=== PATIENT | female | born 1935 | race Caucasian/White ===

== ENCOUNTER → 2017-05-20 | Outpatient (CLI) | payer OTHER | LOC: FIMAGING 14:05 | PROVIDERS: ATTEND Family Medicine Geriatric Medicine | DX: Z12.31 Encounter for screening mammogram for malignant neoplasm of breast (principal) | CPT/HCPCS: G0202 ==

== ENCOUNTER → 2018-09-13 | Outpatient (CLI) | payer OTHER | LOC: FIMAGING 10:03 | PROVIDERS: ATTEND Family Medicine Geriatric Medicine | DX: Z12.31 Encounter for screening mammogram for malignant neoplasm of breast (principal) ==

== ENCOUNTER 2019-03-02 17:25 | Observation (INO) | payer OTHER ==
--- NOTE | 2019-03-02 18:10 | EDPHY ---
General Time Seen by Provider: 03/02/19 17:32 Narrative: CLINICAL IMPRESSION: DIZZINESS ASSESSMENT/PLAN: 83-year-old female presents to the emergency department with complaints of intermittent dizziness over the last 10 days, more so today reported as "just not feeling herself and feeling off balance". Patient arrives with hypertension but otherwise stable vital signs. She has no associated headache, vision changes, neck pain, chest pain or shortness of breath. She has a nonfocal neurological exam, NIH score of 0 with no limb ataxia. 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 No evidence of urinary tract infection, microscopic hematuria noted. No anemia, leukocytosis, significant electrolyte imbalance or renal insufficiency. Chest x-ray without acute cardiopulmonary abnormality. Patient was stabilized in the ED, blood pressures remained elevated, last pressure that I am measured in the room was 175 systolic. Patient will be admitted to the hospitalist service on med surge for further observation and evaluation overnight. She is comfortable with this plan. DNR at bedside. DIFFERENTIAL DX: Dizziness including but not limited to peripheral and central causes of vertigo , orthostatic causes including dehydration, and blood loss, electrolyte imbalance. ED PROCEDURES: See lab and/or imaging results below ED COURSE: 6:00 p.m.: Case an EKG reviewed with Dr. Lerner. Plan for MRI brain without contrast, labs, EKG 6:45 p.m.: Received a call from MRI. Preliminary MRI without contrast showing a frontal lobe mass, marine fisheries technician discussed with Dr. Zamudio who has requested contrast. I authorize this to occur. 7:15 p.m.: MRI results discussed with Dr. Zamudio. Multiple small vessel ischemic changes, no acute hemorrhage or abnormality. Of note, patient has an extra axial mass, likely a calcified meningioma. Surrounding brain without abnormality. The MRI results and labs reviewed with the patient. Recommended admission and she has agreed to this. Discussed with DR. Zarate for admission. CHIEF COMPLAINT: Dizziness HPI: 83-year-old female who resides at [facility] presents to the emergency department by ambulance complaining of intermittent dizziness over the last 7- 10 days, worse today after attending a [place] [facility]. Patient reports she has "just not felt herself". States today she felt "off balance, more so than normal" and apparently had to lean against a wall. She reports no coinciding headache, vertigo, acute vision or hearing changes, or neck pain. No closed head injury or neck trauma. She initially thought this was due to dehydration and has been drinking of substantial amount of water. No reported UTI symptoms. No chest pain or shortness of breath. She has never had symptoms like this in the past. She has not seen anyone for it. She is taking medications compliantly. No reported recent illness, GI symptoms, diarrhea, rash. She does not check her blood pressure regularly and was noted to be quite hypertensive by EMS at 219/110, last blood pressure reading here was 194/ 108. Her friends report that she has not been acting altered and they report no slurred speech. Patient reports no numbness or weakness to the arms or legs and no facial tingling. No head past history of TIA or CVA. She is a nonsmoker PAST MEDICAL HISTORY: Hypercholesterolemia, hypertension, hypothyroidism See nurse/triage notes for additional history if applicable Pertinent Past Surgical History: Bilateral hip replacements, right wrist surgery Family History: None reported Social History: Nonsmoker, lives at [facility] REVIEW OF SYSTEMS: All other systems negative Constitutional: No fever, no chills, appetite change. Eyes: No discharge, vision change ENT: No sore throat, congestion, ear pain. Cardiovascular: No chest pain, no palpitations. Respiratory: No cough, no shortness of breath. Gastrointestinal: No abdominal pain, no vomiting, diarrhea. Genitourinary: No hematuria, dysuria, flank pain, pelvic pain Musculoskeletal: No back pain, or neck pain, joint swelling, joint pain, myalgias. Skin: No rashes, color change. Neurological: No headache, positive for dizziness, positive for weakness. PHYSICAL EXAM: General Appearance: Alert, oriented, appropriate, cooperative, NAD, well hydrated, non-toxic appearing, hypertensive, no hypoxia. HEENT: TMs are clear bilaterally no perforation or FB, no injection, no evidence of serous or mucopurulent otitis. Oropharynx clear is no erythema or exudates, no tonsillar hypertrophy or asymmetry. Dentition without abnormality. Eyes: [PERRLA, no acute vision change, nystagmus, swelling, discharge, pain or photosensitivity. No papilledema appreciated. Neck: Supple, nontender, no lymphadenopathy, no midline pain, FROM, no meningismus. No JVD Respiratory: There are no retractions, lungs are clear to auscultation. Cardiac: Regular rate and rhythm, no murmurs or gallops. Gastrointestinal: Abdomen is soft, nontender, bowel sounds normal,no focal peritoneal findings. Neurological: Alert and oriented x 3, CN 2-12 grossly intact, NIH score of 0 with no limb ataxia, DTR's intact, normal sensation and strength Skin: Warm, dry, no rashes, no nodules on palpation. Musculoskeletal: Extremities are symmetrical, full range of motion, chronic unchanged right knee tenderness and swelling due to arthritis MEDICAL DECISION MAKING: Patient was seen independently. Secondary supervising physician at time of evaluation was Dr. Lerner. Diagnosis: Dizziness . New, requires workup Summary: See Assessment and Plan for summary of ED visit Clinical lab tests: ordered / reviewed. Independent visualization of images, tracing, or specimens: Yes. Decision to obtain medical records or history from someone other than the patient: Family Review / Summarize previous medical records: Reviewed Discussed patient with another provider: Dr. Lerner, hospitalist Patient Progress: Stable for admission. - Diagnostics Imaging Results: Imaging Impressions Brain MRI 03/02/19 18:01 Impression: 1. Extensive periventricular and deep hemispheric white matter change suggesting underlying small vessel ischemic disease. No evidence for acute infarct. There is also probably a component of underlying cerebral amyloid angiopathy. 2. Generalized cerebral atrophy. 3. 3-cm extraaxial dural-based mass anteriorly in the right frontal fossa, probably representing a calcified meningioma. 4. Mild chronic sinus related change. Results called and discussed with Martín Burgos PA-C on March 02, 2019 at 1916 hours. Chest X-Ray 03/02/19 18:10 Impression: No evidence for acute cardiopulmonary abnormality. Chronic findings , as above. - History Smoking Status: Never smoked - Objective Vital Signs: Initial Vital Signs Temperature (C) 36.7 C 03/02/19 17:30 Heart Rate 82 03/02/19 17:30 Respiratory Rate 16 03/02/19 17:30 Blood Pressure 208/96 H 03/02/19 17:30 O2 Sat (%) 96 03/02/19 17:30 O2 Delivery Mode Room Air Allergies/Adverse Reactions: cephalexin Allergy (Intermediate, Verified 03/02/19 20:18) Rash Home Medications: Medication Instructions Recorded Atorvastatin Calcium [Lipitor 10 10 mg PO DAILY 03/02/19 mg (*)] Herbals/Supplements -Info Only 1 ea PO DAILY 03/02/19 Levothyroxine [Synthroid 75 mcg 75 mcg PO SUTUTHSA@06 03/02/19 (*)] Levothyroxine [Synthroid 88 mcg 88 mcg PO MOWEFR 03/02/19 (*)] Laboratory Results: Laboratory Results 03/02/19 17:50 03/02/19 17:50 03/02/19 03/02/19 03/02/19 17:55 17:50 17:50 WBC 7.21 10^3/uL 10^3/uL (3.80-9.50) RBC 4.21 10^6/uL 10^6/uL (4.18-5.33) Hgb 13.5 g/dL g/dL (12.6-16.3) Hct 38.5 % % (38.0-47.0) MCV 91.4 fL fL (81.5-99.8) MCH 32.1 pg pg (27.9-34.1) MCHC 35.1 g/dL g/dL (32.4-36.7) RDW 12.7 % % (11.5-15.2) Plt Count 274 10^3/uL 10^3/uL (150-400) MPV 9.4 fL fL (8.7-11.7) Neut % (Auto) 66.4 % % (39.3-74.2) Lymph % (Auto) 21.2 % % (15.0-45.0) [place] % (Auto) 9.4 % % (4.5-13.0) Eos % (Auto) 1.9 % % (0.6-7.6) Baso % (Auto) 0.8 % % (0.3-1.7) Nucleat RBC Rel Count 0.0 % % (0.0-0.2) Absolute Neuts (auto) 4.78 10^3/uL 10^3/uL (1.70-6.50) Absolute Lymphs (auto) 1.53 10^3/uL 10^3/uL (1.00-3.00) Absolute Monos (auto) 0.68 10^3/uL 10^3/uL (0.30-0.80) Absolute Eos (auto) 0.14 10^3/uL 10^3/uL (0.03-0.40) Absolute Basos (auto) 0.06 10^3/uL 10^3/uL (0.02-0.10) Absolute Nucleated RBC 0.00 10^3/uL 10^3/uL (0-0.01) Immature Gran % 0.3 % % (0.0-1.1) Immature Gran # 0.02 10^3/uL 10^3/uL (0.00-0.10) Sodium 131 mEq/L L mEq/L (135-145) Potassium 4.2 mEq/L mEq/L (3.5-5.2) Chloride 99 mEq/L mEq/L (97-110) Carbon Dioxide 21 mEq/l L mEq/l (22-31) Anion Gap 11 mEq/L mEq/L (6-14) BUN 19 mg/dL mg/dL (7-23) Creatinine 0.9 mg/dL mg/dL (0.6-1.0) Estimated GFR 60 Glucose 96 mg/dL mg/dL (70-100) Calcium 9.3 mg/dL mg/dL (8.5-10.4) POC Troponin I 0.00 ng/mL ng/mL (0.00-0.08) Urine Color Urine Appearance Urine pH Ur Specific [place] Urine Protein Urine Ketones Urine Blood Urine Nitrate Urine Bilirubin Urine Urobilinogen Ur Leukocyte Esterase Urine RBC Urine WBC Ur Epithelial Cells Ur Renal Epithelial Cell Urine Crystals Ammonium Urate Crystals Calcium Carbonate Cryst Calcium Phosphate Cryst Calcium Oxalate Crystal Leucine Crystals Cystine Crystals Uric Acid Crystals Triple Phos Crystals Sulfonamide Crystals Cholesterol Crystals Tyrosine Crystals Bilirubin Crystals Amorphous Sediment Urine Bacteria Epithelial Casts Fatty Casts Hyaline Casts Granular Casts Waxy Casts Broad Casts RBC Casts WBC Casts Urine Mucus Urine Trichomonas Urine Yeast Urine Sperm Ur Oval Fat Bodies Ur Free Fat Droplets Urine Glucose Urine Comment 03/02/19 03/02/19 17:42 17:42 WBC RBC Hgb Hct MCV MCH MCHC RDW Plt Count MPV Neut % (Auto) Lymph % (Auto) [place] % (Auto) Eos % (Auto) Baso % (Auto) Nucleat RBC Rel Count Absolute Neuts (auto) Absolute Lymphs (auto) Absolute Monos (auto) Absolute Eos (auto) Absolute Basos (auto) Absolute Nucleated RBC Immature Gran % Immature Gran # Sodium Potassium Chloride Carbon Dioxide Anion Gap BUN Creatinine Estimated GFR Glucose Calcium POC Troponin I Urine Color COLORLESS Urine Appearance CLEAR Urine pH 7.0 (5.0-7.5) Ur Specific [place] 1.003 (1.002-1.030) Urine Protein NEGATIVE (NEGATIVE) Urine Ketones NEGATIVE (NEGATIVE) Urine Blood 1+ H (NEGATIVE) Urine Nitrate NEGATIVE (NEGATIVE) Urine Bilirubin NEGATIVE (NEGATIVE) Urine Urobilinogen NEGATIVE EU EU (0.2-1.0) Ur Leukocyte Esterase NEGATIVE (NEGATIVE) Urine RBC Cancelled 1-3 /hpf /hpf (0-3) Urine WBC Cancelled 1-3 /hpf /hpf (0-3) Ur Epithelial Cells Cancelled NONE SEEN /lpf /lpf (NONE-1+) Ur Renal Epithelial Cell Cancelled Urine Crystals Cancelled Ammonium Urate Crystals Cancelled Calcium Carbonate Cryst Cancelled Calcium Phosphate Cryst Cancelled Calcium Oxalate Crystal Cancelled Leucine Crystals Cancelled Cystine Crystals Cancelled Uric Acid Crystals Cancelled Triple Phos Crystals Cancelled Sulfonamide Crystals Cancelled Cholesterol Crystals Cancelled Tyrosine Crystals Cancelled Bilirubin Crystals Cancelled Amorphous Sediment Cancelled Urine Bacteria Cancelled Epithelial Casts Cancelled Fatty Casts Cancelled Hyaline Casts Cancelled Granular Casts Cancelled Waxy Casts Cancelled Broad Casts Cancelled RBC Casts Cancelled WBC Casts Cancelled Urine Mucus Cancelled Urine Trichomonas Cancelled Urine Yeast Cancelled Urine Sperm Cancelled Ur Oval Fat Bodies Cancelled Ur Free Fat Droplets Cancelled Urine Glucose NEGATIVE (NEGATIVE) Urine Comment Cancelled Point of Care Test Results: Chemistry 03/02/19 17:55 POC Troponin I 0.00 ng/mL ng/mL (0.00-0.08) Departure - Departure Disposition: [facility] Inpatient Acute Clinical Impression: Dizziness Condition: Good
[2019-03-02 18:18] LABS: PLATELET COUNT 274 10^3/uL (150-400)
--- NOTE | 2019-03-02 18:22 | CPEKG ---
Test Reason : OPEN Blood Pressure : / mmHG Vent. Rate : 075 BPM Atrial Rate : 075 BPM P-R Int : 205 ms QRS Dur : 101 ms QT Int : 392 ms P-R-T Axes : 016 -12 067 degrees QTc Int : 438 ms Sinus rhythm Probable anteroseptal infarct, old Confirmed by Fady Lerner ([id number]) on 03/02/2019 6:22:29 PM Referred By: Cherie Welch Confirmed By:Fady Lerner
[2019-03-02] MEDS ORDERED: GADOBUTROL 10 ML VIAL IVP ONE (18:43)
[2019-03-02] MEDS ORDERED: HYDROCODONE/APAP 5/325 TAB PO PRN (20:42)
[2019-03-02] MEDS ORDERED: ACETAMINOPHEN 325 MG TAB PO PRN (20:42)
[2019-03-02] MEDS ORDERED: ONDANSETRON DISINTEGRATING 4 MG TAB PO PRN (20:42)
[2019-03-02] MEDS ORDERED: oxyCODONE IR 5 MG TAB PO PRN (20:42)
[2019-03-02] MEDS ORDERED: PROMETHAZINE HCL 25 MG/ML INJ IVP PRN (20:42)
[2019-03-02] MEDS ORDERED: ONDANSETRON 4 MG/2 ML VIAL IVP PRN (20:42)
[2019-03-02] MEDS ORDERED: hydrALAZINE 20 MG/ML VIAL IVP PRN (20:42)
--- NOTE | 2019-03-02 20:45 | PDGENHP ---
History and Physical - Chief Complaint dizziness/gait instability - History of Present Illness 83 yo F with PMH that includes hypothyroid and HLD presenting with complaints of dizziness for the last 10-14 days that has been worsening, and severe enough today that she was not able to walk without holding on to the wall. She has a hard time describing the dizziness, states it was not near syncope, not vertigo , but just that she 'did not feel her usual self.' She thought she might be dehydrated so she drank a lot of water today, but that did not help. She denies any chest pain, sob, fever or chills, numbness or weakness, changes in speech or vision. She states that her sxs have improved somewhat since arrival. When she arrived, her BP was elevated to SBP>200, and her sxs improved as it came down History Information - Allergies/Home Medication List Allergies/Adverse Reactions: cephalexin Allergy (Intermediate, Verified 03/02/19 20:18) Rash Home Medications: Atorvastatin Calcium [Lipitor 10 mg (*)] 10 mg PO DAILY 03/02/19 [Last Taken ] Herbals/Supplements -Info Only 1 ea PO DAILY 03/02/19 [Last Taken 03/02/19] Levothyroxine [Synthroid 75 mcg (*)] 75 mcg PO SUTUTHSA@06 03/02/19 [Last Taken 03/02/19] Levothyroxine [Synthroid 88 mcg (*)] 88 mcg PO MOWEFR 03/02/19 [Last Taken 03/01] I have personally reviewed and updated: family history, medical history, social history, surgical history - Past Medical History arthritis, hyperlipidemia Additional medical history: hypothyroid - Surgical History Additional surgical history: left TERESA - Family History Positive for: non-pertinent - Social History Smoking Status: Never smoked Alcohol Use: Rarely Drug Use: None Additional social history: lives independently at [facility] Review of Systems Review of Systems: ROS: 10pt was reviewed & negative except for what was stated in HPI & below Physical Exam Physical Exam: Temp Pulse Resp BP Pulse Ox 36.7 C 73 16 174/91 H 97 03/02/19 17:30 03/02/19 20:08 03/02/19 20:08 03/02/19 20:08 03/02/19 20:08 Constitutional: no apparent distress, appears nourished Eyes: PERRL, EOMI Ears, Nose, Mouth, Throat: moist mucous membranes, hearing normal Cardiovascular: regular rate and rhythym, no murmur, rub, or gallop, No edema Respiratory: no respiratory distress, no rales or rhonchi Gastrointestinal: normoactive bowel sounds, soft, non-tender abdomen Genitourinary: no bladder tenderness Skin: warm, normal color Musculoskeletal: full muscle strength Neurologic: AAOx3 Psychiatric: interacting appropriately, not anxious, not encephalopathic Lab Data & Imaging Review 03/02/19 17:50 03/02/19 17:50 WBC 7.21 10^3/uL (3.80-9.50) 03/02/19 17:50 RBC 4.21 10^6/uL (4.18-5.33) 03/02/19 17:50 Hgb 13.5 g/dL (12.6-16.3) 03/02/19 17:50 Hct 38.5 % (38.0-47.0) 03/02/19 17:50 MCV 91.4 fL (81.5-99.8) 03/02/19 17:50 MCH 32.1 pg (27.9-34.1) 03/02/19 17:50 MCHC 35.1 g/dL (32.4-36.7) 03/02/19 17:50 RDW 12.7 % (11.5-15.2) 03/02/19 17:50 Plt Count 274 10^3/uL (150-400) 03/02/19 17:50 MPV 9.4 fL (8.7-11.7) 03/02/19 17:50 Neut % (Auto) 66.4 % (39.3-74.2) 03/02/19 17:50 Lymph % (Auto) 21.2 % (15.0-45.0) 03/02/19 17:50 [place] % (Auto) 9.4 % (4.5-13.0) 03/02/19 17:50 Eos % (Auto) 1.9 % (0.6-7.6) 03/02/19 17:50 Baso % (Auto) 0.8 % (0.3-1.7) 03/02/19 17:50 Nucleat RBC Rel Count 0.0 % (0.0-0.2) 03/02/19 17:50 Absolute Neuts (auto) 4.78 10^3/uL (1.70-6.50) 03/02/19 17:50 Absolute Lymphs (auto) 1.53 10^3/uL (1.00-3.00) 03/02/19 17:50 Absolute Monos (auto) 0.68 10^3/uL (0.30-0.80) 03/02/19 17:50 Absolute Eos (auto) 0.14 10^3/uL (0.03-0.40) 03/02/19 17:50 Absolute Basos (auto) 0.06 10^3/uL (0.02-0.10) 03/02/19 17:50 Absolute Nucleated RBC 0.00 10^3/uL (0-0.01) 03/02/19 17:50 Immature Gran % 0.3 % (0.0-1.1) 03/02/19 17:50 Immature Gran # 0.02 10^3/uL (0.00-0.10) 03/02/19 17:50 Sodium 131 mEq/L (135-145) L 03/02/19 17:50 Potassium 4.2 mEq/L (3.5-5.2) 03/02/19 17:50 Chloride 99 mEq/L (97-110) 03/02/19 17:50 Carbon Dioxide 21 mEq/l (22-31) L 03/02/19 17:50 Anion Gap 11 mEq/L (6-14) 03/02/19 17:50 BUN 19 mg/dL (7-23) 03/02/19 17:50 Creatinine 0.9 mg/dL (0.6-1.0) 03/02/19 17:50 Estimated GFR 60 03/02/19 17:50 Glucose 96 mg/dL (70-100) 03/02/19 17:50 Calcium 9.3 mg/dL (8.5-10.4) 03/02/19 17:50 POC Troponin I 0.00 ng/mL (0.00-0.08) 03/02/19 17:55 Urine Color COLORLESS 03/02/19 17:42 Urine Appearance CLEAR 03/02/19 17:42 Urine pH 7.0 (5.0-7.5) 03/02/19 17:42 Ur Specific [place] 1.003 (1.002-1.030) 03/02/19 17:42 Urine Protein NEGATIVE (NEGATIVE) 03/02/19 17:42 Urine Ketones NEGATIVE (NEGATIVE) 03/02/19 17:42 Urine Blood 1+ (NEGATIVE) H 03/02/19 17:42 Urine Nitrate NEGATIVE (NEGATIVE) 03/02/19 17:42 Urine Bilirubin NEGATIVE (NEGATIVE) 03/02/19 17:42 Urine Urobilinogen NEGATIVE EU (0.2-1.0) 03/02/19 17:42 Ur Leukocyte Esterase NEGATIVE (NEGATIVE) 03/02/19 17:42 Urine RBC 1-3 /hpf (0-3) 03/02/19 17:42 Urine WBC 1-3 /hpf (0-3) 03/02/19 17:42 Ur Epithelial Cells NONE SEEN /lpf (NONE-1+) 03/02/19 17:42 Ur Renal Epithelial Cell Cancelled 03/02/19 17:42 Urine Crystals Cancelled 03/02/19 17:42 Ammonium Urate Crystals Cancelled 03/02/19 17:42 Calcium Carbonate Cryst Cancelled 03/02/19 17:42 Calcium Phosphate Cryst Cancelled 03/02/19 17:42 Calcium Oxalate Crystal Cancelled 03/02/19 17:42 Leucine Crystals Cancelled 03/02/19 17:42 Cystine Crystals Cancelled 03/02/19 17:42 Uric Acid Crystals Cancelled 03/02/19 17:42 Triple Phos Crystals Cancelled 03/02/19 17:42 Sulfonamide Crystals Cancelled 03/02/19 17:42 Cholesterol Crystals Cancelled 03/02/19 17:42 Tyrosine Crystals Cancelled 03/02/19 17:42 Bilirubin Crystals Cancelled 03/02/19 17:42 Amorphous Sediment Cancelled 03/02/19 17:42 Urine Bacteria Cancelled 03/02/19 17:42 Epithelial Casts Cancelled 03/02/19 17:42 Fatty Casts Cancelled 03/02/19 17:42 Hyaline Casts Cancelled 03/02/19 17:42 Granular Casts Cancelled 03/02/19 17:42 Waxy Casts Cancelled 03/02/19 17:42 Broad Casts Cancelled 03/02/19 17:42 RBC Casts Cancelled 03/02/19 17:42 WBC Casts Cancelled 03/02/19 17:42 Urine Mucus Cancelled 03/02/19 17:42 Urine Trichomonas Cancelled 03/02/19 17:42 Urine Yeast Cancelled 03/02/19 17:42 Urine Sperm Cancelled 03/02/19 17:42 Ur Oval Fat Bodies Cancelled 03/02/19 17:42 Ur Free Fat Droplets Cancelled 03/02/19 17:42 Urine Glucose NEGATIVE (NEGATIVE) 03/02/19 17:42 Urine Comment Cancelled 03/02/19 17:42 Visualized and Interpreted Chest x-ray results: Yes Chest X-Ray results: no infiltrate, other (e/o emphysema) Visualized and Interpreted imaging results: Yes Interpretation: brain MRI: exentsive white matter changes, ? cerebral amyloid angiopathy, 3cm dural based mass likely calcified meningioma Visualized and Interpreted EKG results: Yes EKG Interpretation: Positive for: normal sinsus rhythm Assessment & Plan Assessment: Dizziness (Acute) 83 yo F with PMH of HLD, hypothyroid pw 10 days of dizziness, with hypertensive urgency and abnormal brain mri # dizziness: patient a poor historian and difficult to really be sure what she is describing, but today also with gait instability, no focal neuro findings. Plan is to monitor on tele, will get an echo in am given uncontrolled htn and uncertain sxs. PT/OT to see. Given abnormal brain MRI, neuro consult as well. # hypertensive urgency: with associated sxs as above possibly related to hypertensive encephalopathy or similar issue but unclear given the history, she did note her sxs improved with bp lowering. Hydralazine prn, will aim to keep bp around sbp 160-180 if possible. She is not on BP meds at home and likely will need to dc on bp meds. # brain mass/extensive white matter disease: abnormal brain MRI in setting of days of dizziness and not feeling right as above, non focal on exam, will ask for neurology to evaluate in am # hyponatremia: mild, likely due to drinking excessive water today, will recheck in am # hypothyroid: continue levothyroxine # HLD: continue statin # DNR observation status Patient new to my care. Old records reviewed, care plan reviewed with ER doctor , summarized as above. Further hx obtained from family present at bedside.
[2019-03-03 05:18] LABS: PLATELET COUNT 252 10^3/uL (150-400)
[2019-03-03] MEDS ORDERED: LEVOTHYROXINE 75 MCG TAB PO SCH (06:00)
[2019-03-03] MEDS ORDERED: ATORVASTATIN CALCIUM 10 MG TAB PO SCH (09:00)
[2019-03-03 12:21] VITALS: BP 135/79
--- NOTE | 2019-03-03 12:49 | ASMTLACE ---
LACE Length of stay for Answers: Less than 1 day current admission Acuity / Level of Answers: No Care: Did the patient have an inpatient admission? # of Emergency department Answers: 1-2 visits in the last 6 months Score: 1 Date Signed: 03/03/2019 12:49 PM Electronically Signed By:Lisette Herrera RN
--- NOTE | 2019-03-03 12:52 | ASMTDCNOTE ---
Case Management Discharge Discharge Order Complete? Answers: Yes Patient to Obtain Answers: via Family Medications Transportation Arranged Answers: Family/Friends Family Notified Answers: Yes Discharge Comments Notes: Patient medically clear for dc back to [facility] after been admitted as obs patient via ED for c/o dizzyness. Stay < 24 hours. CM available should needs arise Date Signed: 03/03/2019 12:52 PM Electronically Signed By:Lisette Herrera RN
--- NOTE | 2019-03-03 15:23 | GCON ---
[f rep st] CONSULTATION NEUROLOGIC CONSULTATION REFERRING PHYSICIAN: Dilip Navarro MD HISTORY OF PRESENT ILLNESS: The patient is an 83-year-old woman who has been experiencing a few week s of feeling lightheaded. It is not vertigo and it is not associated with syncope, but she says that it is a feeling hard for her to put into words. The best word she can come up with is a lightheaded feeling. It tends to happen after she gets up and is moving about. It is not associated with any h eadaches, confusion, double vision, numbness or weakness. Yesterday, she had the same phenomenon but seemed a little more prominent than usual and she felt as if she needed to lean against things. She does not need walking assistance in her apartment, but she will use a rolling walker at times when s he is outside of her residence. She is otherwise fully independent. She had a rather high blood pre ssure when it was checked at her nursing facility, over 200. Then when she came to our hospital, her initial reading was 208/96. Subsequently, it has come down without specific interventions and most recent blood pressure is 127/78. She is not known to have any chronic hypertension. She feels much better now. 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 Carotid ultrasound showed no significant stenoses of the anterior or posterior circulation by velocity criteria. Echocardiogram is pending. At home, she takes Lipitor. She is n ot on any antiplatelet therapies. She has had no recurrent feelings of prominent lightheadedness. She said when she was walking today she felt good. She says she is consciously trying to maintain hydration as best she can. There was just a mild degr ee of relative hyponatremia yesterday. REVIEW OF SYSTEMS: A 10-point review of systems completed and unremarkable for chest pain, palpitati ons, shortness of breath, or any other neurologic complaints as outlined above. PAST MEDICAL HISTORY: There is some history of arthritis, hyperlipidemia, and hypothyroidism. FAMILY HISTORY: Noncontributory. SOCIAL HISTORY: She is retired from [employer] and from [place]. No smoking. Very rare alcohol consum ption. PHYSICAL EXAMINATION: VITAL SIGNS: Temperature 36.6, pulse 57, respirations 16, blood pressure 127/ 78. GENERAL: She is a well-developed older woman in no acute distress. NECK: Supple with no bruit s or masses. CARDIAC: Regular rate and rhythm. No murmur. NEUROLOGICAL: Pupils 2 mm and reactive . Extraocular movements are intact. No visual field loss. Normal facial sensation and strength. P alate elevates symmetrically. Tongue protrudes midline. Motor exam: Normal muscle bulk and tone. 5/5 strength. Sensation is preserved for temperature and light touch. No ataxia on [id number]. Reflexes 1+. NIH stroke scale is zero. X-RAY AND LABORATORY DATA: Normal electrolytes. Urinalysis and CBC. Other diagnostic studies as ou tlined. IMPRESSION: Total unit time 50 minutes. This patient has experienced a few weeks of nonspecific lightheadedness, which is probably, some perh aps relative hypotensive phenomena but not consistent with transient ischemic attack or stroke or sei zure. It does not sound particularly vestibular in nature. We do not see any changes thus far sugge sting a cerebrovascular stenosis to account for this. Unless echocardiogram shows something unexpect ed, she is safe to be discharged to my opinion and can follow up with primary care. Doing some outpa tient physical therapy is a reasonable option, but also emphasizing the importance of hydration and e xercise. She already has mobility assistance devices in place, and is a very conscientious person aw are of her limitations and moves around carefully. She does not have a clear-cut indication for marcelino ng antiplatelet therapy. She is already on statin therapy. I discussed the status with nurse ana Miranda. /[id number]/MODL
--- NOTE | 2019-03-03 17:03 | GDS ---
[f rep st] DISCHARGE SUMMARY DISCHARGE DIAGNOSES: 1. Dizziness. 2. Hypertensive urgency. 3. Abnormal brain magnetic resonance imaging. 4. Hyponatremia. 5. Hypothyroidism. CONSULTATIONS: Dr. Alfonso. STUDIES AND PROCEDURES DONE: 1. Brain MRI. 2. Carotid Doppler study. 3. Echocardiogram. PHYSICAL EXAM: GENERAL: The patient is alert. VITAL SIGNS: Afebrile at 36.7, pulse of 76, respira tory rate is 19. Blood pressure is 135/79. She is saturating 95% on room air. I have seen and eval uated the patient on the day of discharge. HOSPITAL COURSE: The patient is an 83-year-old female who presented to the emergency room with compl aints of dizziness. She was evaluated and diagnosed with: 1. Dizziness. The etiology of this is unclear. She has no focal neuro deficits. She did receive a consultation from Neurology. Her symptoms have completely resolved and she feels close to baseline. 2. Hypertensive urgency. This is likely the cause of the patient's dizziness. She did receive hydr alazine during this hospitalization. Her blood pressure has remained within normal limits off any an tihypertensive medications. She has been instructed to keep a blood pressure journal at home and fol low up with her primary care physician. She does not require any antihypertensive medications at the time of disposition. 3. Abnormal MRI. This was evaluated by Neurology with no further indication for workup. 4. Hyponatremia. This is in the setting of potential excessive water intake and is stable. 5. Hypothyroidism. This is stable. DISPOSITION: The patient will be discharged home to return to [facility]. T here are no pending laboratory evaluations. Pending studies do include echocardiogram which the [facility] will get results from her primary care physician. DISCHARGE MEDICATIONS: Please refer to EMR form. I have not adjusted the patient's previously presc ribed home medications to the best of my knowledge. Followup will be with Dr. Leah Norris, the [facility]'s primary care physician. She has been cleared by Physical Therapy and Occupational Therapy. /[id number]/MODL
[2019-03-04] MEDS ORDERED: LEVOTHYROXINE 88 MCG TAB PO SCH (06:00)
--- NOTE | 2019-03-04 10:40 | ECHO ---
[email or web address] [address] [address] Main: [phone] Echocardiography Examination Transthoracic Name: DAVID ANAYA MR#: [id number] Study Date: 03/03/2019 Study Time: 02:09 PM Date of : 1935 Age: 83 year(s) Height: 165.1 cm (65 in.) Weight: 70.31 kg (155 lb.) BSA: 1.78 m2 Gender: Female Examination: Echo Contrast: Image Quality: Adequate Rhythm: Normal sinus rhythm Heart Rate: 77 bpm BP: 135 mmHg/79 mmHg Indication: Cardiac: dizziness and/or near-syncope Procedure Staff Referring Physician: Supervisor Transcribing Operators: Reading Physician: Cesario Macias MD Requesting Provider: Ordering Physician: Dilip Navarro Indication: Cardiac: dizziness and/or near-syncope Measurements Chambers AV/MV Label Value Normal Value Label Value Normal Value LVOT Vmax 0.91 m/s (0.7m/s - 1.1m/s) AV PGmax 7 mmHg LVOTd 1.9 cm (1.8cm - 2cm) AV PGmean 4 mmHg LVOT VTI 22.5 cm (18cm - 22cm) AV Vmax 1.3 m/s LVDd, 2D 4.6 cm (3.9cm - 5.3cm) ANTHONY (Vmax) 2 cm2 LVDs, 2D 3.1 cm (2.1cm - 4cm) ANTHONY (VTI) 2.2 cm2 IVSd, MM 1.4 cm (0.6cm - 0.9cm) MV E Vmax 0.55 m/s IVSd, 2D 1 cm (0.6cm - 1.1cm) MV A Vmax 0.62 m/s LVPWd, 2D 1.3 cm MV E/A 0.89 LVEF, 2D 60 % (54% - 74%) MV E/E' lateral 9.7 LVOT PGmean 2 mmHg MV E/E' septal 17 (0.45 - 1.25) LVOT Vmean 0.66 m/s MV E' septal 0.03 m/s RVDd, 2D 3 cm (1.9cm - 3.8cm) MV E' lateral 0.06 m/s LA Volume, BP 46 ml (22ml - 52ml) MV E/E' mean 12.22 LADs, 2D 3.7 cm (2.7cm - 3.8cm) MV E' mean 0.04 m/s LAESV index, BP 25.8 ml/m2 TV/PV Additional Vessels Label Value Normal Value Label Value Normal Value RA Pressure 5 mmHg AoAsc 3 cm RVSP 27 mmHg AoRoot, MM 3.4 cm (2.2cm - 3.7cm) TR Pmax 22 mmHg Patient: DAVID ANAYA Study Date: 03/03/2019 Page 1 of 3 02:09 PM TR Vmax 2.33 m/s PV PGmax 2 mmHg PV Vmax, Caliper 0.72 m/s (0.6m/s - 0.9m/s) Conclusions Left Ventricle: CONCLUSIONS:1)Normal LV size and systolic function with a LVEF of 60% and normal wall motions.2)Mild concentric LVH with mild diastolic dysfunction noted.3)Mild AI with no noted.4)Trivial MR without MV prolapse.5)Trivial TR with estimated normal PA pressures. Findings Left Ventricle: Left ventricle is normal in size. CONCLUSIONS: 1)Normal LV size and systolic function with a LVEF of 60% and normal wall motions. 2)Mild concentric LVH with mild diastolic dysfunction noted. 3)Mild AI with no noted. 4)Trivial MR without MV prolapse. 5)Trivial TR with estimated normal PA pressures. There is mild concentric left ventricular hypertrophy. There are no regional wall motion abnormalities. Grade I Diastolic Dysfunction. Left ventricular hypertrophy is noted. Right Ventricle: Normal size right ventricle. Right ventricular systolic function is normal. Left Atrium: The left atrium is normal in size. Right Atrium: The right atrium is normal in size. Mitral Valve: Mitral valve appears structurally normal. Trivial mitral regurgitation. No mitral valve stenosis. There is minimal mitral thickening. Aortic Valve: Mild aortic regurgitation is present. There is no aortic stenosis. The aortic valve is trileaflet. Tricuspid Valve: Tricuspid valve leaflets are normal in appearance and function. Trivial tricuspid regurgitation. Right Ventricular systolic pressure is measured at 27 mmHg. Pulmonary artery pressure normal. Pulmonic Valve: Pulmonic leaflets are normal in appearance and function. Trivial pulmonic valve regurgitation is present. Aorta: The aorta is normal. The aortic root size in M-mode measures 3.4 cm. The ascending aorta measures 3.0 cm. Aorta Measurements AoRoot, MM is 3.4 cm. Pericardium: No pericardial effusion. Exam Details Procedure Ordered: Echo Procedure Status: Routine study Image Quality: Adequate Facility Location: Cardiac Echo 1 (No Signature Object) Patient: DAVID ANAYA Study Date: 03/03/2019 Page 2 of 3 02:09 PM Patient: DAVID ANAYA Study Date: 03/03/2019 Page 3 of 3 02:09 PM [id number]
== END 2019-03-03 14:46 | disposition home or self-care (01) ==
LOC: EDUNIT# → F3N 21:20
PROVIDERS: ADMIT Internal Medicine; ATTEND Internal Medicine
DX: R55 Syncope and collapse (principal); I16.0 Hypertensive urgency; R90.89 Other abnormal findings on diagnostic imaging of central nervous system; E03.9 Hypothyroidism, unspecified; E87.1 Hypo-osmolality and hyponatremia; E78.00 Pure hypercholesterolemia, unspecified; Z96.643 Presence of artificial hip joint, bilateral
CPT/HCPCS: 70553; 71046; 93005; 93306; 93880; 97161; 97165; 99285; A9585; G0378; 84484-ER

== ENCOUNTER 2019-03-04 12:26 | Observation (INO) | payer OTHER ==
--- NOTE | 2019-03-04 13:23 | EDPHY ---
H & P Time Seen by Provider: 03/04/19 12:56 HPI/ROS: CHIEF COMPLAINT: Dizziness HISTORY OF PRESENT ILLNESS: Patient is an 80-year-old female who presents emergency department ongoing dizziness. The patient was admitted to the hospital on 03/02/2019 and discharged yesterday on 03/03. The patient has been having 10-14 days of dizziness. This primarily occurs in the morning. She was admitted to the hospital and had negative workup with brain MRI, carotid Doppler study and echocardiogram. Per the discharge summary the patient may have had hypertensive urgency causing her symptoms. She received hydralazine while in the hospital. Patient states that her symptoms returned this morning. She felt significantly dizzy. She was unable to ambulate and thought that she might fall. She had no focal weakness or numbness. No visual change. She denies headache, chest pain or shortness of breath. No nausea or vomiting. REVIEW OF SYSTEMS: 10 systems were reveiwed and are negative with the exception of the elements mentioned in the history of present illness. Past Medical/Surgical History: Includes hypertensive, hypothyroidism, high cholesterol, hyponatremia Past surgical history: Includes hip replacement Social history: Patient does not smoke Smoking Status: Never smoked Physical Exam: Vitals noted. Blood pressure 179/120. GENERAL: Well-appearing, in no acute distress, alert. HEENT: Eyes normal to inspection, normal pharynx, no signs of dehydration. NECK: Normal, supple. RESPIRATORY: Clear to auscultation bilaterally, no rales, rhonchi or wheezing. CVS: Regular rate and rhythm, no rubs, murmurs, or gallops. ABDOMEN: Soft, nontender, nondistended, no organomegaly. BACK: Normal to inspection, no CVA tenderness. SKIN: Normal color, no rash, warm, dry. No pallor. EXTREMITIES: No pedal edema, no calf tenderness, no Homans sign or cords, no joint swelling. NEURO/PSYCH: Higher functions: Alert and Oriented x3. Normal speech and cognition. Normal mood and affect. Cranial nerves: Normal as tested. Cerebellar: Normal as tested. Good finger to nose, good [id number], normal gait. Peripheral exam: Normal motor exam. Normal sensation. Normal reflexes. Constitutional: Initial Vital Signs Temperature (C) 36.8 C 03/04/19 12:30 Heart Rate 79 03/04/19 12:30 Respiratory Rate 18 03/04/19 12:30 Blood Pressure 179/120 H 03/04/19 12:30 O2 Sat (%) 98 03/04/19 12:30 O2 Delivery Mode Room Air Allergies/Adverse Reactions: cephalexin Allergy (Intermediate, Verified 03/04/19 12:30) Rash Home Medications: Medication Instructions Recorded Atorvastatin Calcium [Lipitor 10 10 mg PO DAILY@15 03/02/19 mg (*)] Herbals/Supplements -Info Only 1 ea PO DAILY 03/02/19 Levothyroxine [Synthroid 75 mcg 75 mcg PO SUTUTHSA@03/02/19 (*)] Levothyroxine [Synthroid 88 mcg 88 mcg PO MOWEFR@03/02/19 (*)] Medical Decision Making ED Course/Re-evaluation: In the emergency department discussed possible etiologies with the patient. I answered all her questions. I reviewed the patient's previous medical record. Laboratory studies and EKG were ordered. EKG shows normal sinus rhythm, normal rate, normal axis, normal intervals. There are no ST or T-wave abnormalities. EKG is normal as interpreted by me. CBC is unremarkable. Chemistry panel is notable for low sodium 132. I compared this with a previous values. Troponin is negative. Patient was written for hydralazine. However on recheck the patient's blood pressure improved to 165/85. Hydralazine was held. I discussed the results with the patient. I answered all her questions. I discussed the case with Dr. Navarro from the hospitalist service. She will admit. Differential Diagnosis: My differential includes not limited to hypertensive emergency, hypertensive urgency, CVA, dissection, electrolyte abnormality, sugar abnormality - Data Points Laboratory Results: Laboratory Results 03/04/19 12:55 03/04/19 12:55 03/04/19 03/04/19 03/04/19 12:59 12:55 12:55 WBC 6.44 10^3/uL 10^3/uL (3.80-9.50) RBC 4.27 10^6/uL 10^6/uL (4.18-5.33) Hgb 13.7 g/dL g/dL (12.6-16.3) Hct 39.0 % % (38.0-47.0) MCV 91.3 fL fL (81.5-99.8) MCH 32.1 pg pg (27.9-34.1) MCHC 35.1 g/dL g/dL (32.4-36.7) RDW 12.6 % % (11.5-15.2) Plt Count 266 10^3/uL 10^3/uL (150-400) MPV 9.4 fL fL (8.7-11.7) Neut % (Auto) 69.4 % % (39.3-74.2) Lymph % (Auto) 20.0 % % (15.0-45.0) [place] % (Auto) 8.4 % % (4.5-13.0) Eos % (Auto) 1.1 % % (0.6-7.6) Baso % (Auto) 0.8 % % (0.3-1.7) Nucleat RBC Rel Count 0.0 % % (0.0-0.2) Absolute Neuts (auto) 4.47 10^3/uL 10^3/uL (1.70-6.50) Absolute Lymphs (auto) 1.29 10^3/uL 10^3/uL (1.00-3.00) Absolute Monos (auto) 0.54 10^3/uL 10^3/uL (0.30-0.80) Absolute Eos (auto) 0.07 10^3/uL 10^3/uL (0.03-0.40) Absolute Basos (auto) 0.05 10^3/uL 10^3/uL (0.02-0.10) Absolute Nucleated RBC 0.00 10^3/uL 10^3/uL (0-0.01) Immature Gran % 0.3 % % (0.0-1.1) Immature Gran # 0.02 10^3/uL 10^3/uL (0.00-0.10) Sodium 132 mEq/L L mEq/L (135-145) Potassium 4.1 mEq/L mEq/L (3.5-5.2) Chloride 98 mEq/L mEq/L (97-110) Carbon Dioxide 21 mEq/l L mEq/l (22-31) Anion Gap 13 mEq/L mEq/L (6-14) BUN 19 mg/dL mg/dL (7-23) Creatinine 0.9 mg/dL mg/dL (0.6-1.0) Estimated GFR 60 Glucose 90 mg/dL mg/dL (70-100) Calcium 9.2 mg/dL mg/dL (8.5-10.4) POC Troponin I 0.00 ng/mL ng/mL (0.00-0.08) Medications Given: Discontinued Medications Hydralazine HCl (Apresoline) 5 mg IVP EDNOW ONE Stop: 03/04/19 13:29 Last Admin: 03/04/19 14:12 Dose: Not Given Point of Care Test Results: Chemistry 03/04/19 12:59 POC Troponin I 0.00 ng/mL ng/mL (0.00-0.08) Departure - Departure Disposition: [facility] Inpatient Acute Clinical Impression: Dizziness Condition: Good Instructions: Dizziness (ED) Referrals: Leah Norris MD [Primary Care Provider] - As per Instructions
[2019-03-04 13:33] LABS: PLATELET COUNT 266 10^3/uL (150-400)
[2019-03-04] MEDS: hydrALAZINE 20 MG/ML VIAL IVP ONE ×2 (13:45→14:12)
[2019-03-04] MEDS ORDERED: ONDANSETRON DISINTEGRATING 4 MG TAB PO PRN (14:45)
[2019-03-04] MEDS ORDERED: ONDANSETRON 4 MG/2 ML VIAL IVP PRN (14:45)
[2019-03-04] MEDS ORDERED: ACETAMINOPHEN 325 MG TAB PO PRN (14:45)
--- NOTE | 2019-03-04 15:02 | CPEKG ---
Test Reason : OPEN Blood Pressure : / mmHG Vent. Rate : 068 BPM Atrial Rate : 068 BPM P-R Int : 173 ms QRS Dur : 104 ms QT Int : 432 ms P-R-T Axes : 051 -02 067 degrees QTc Int : 460 ms Sinus rhythm Confirmed by Urszula Varela ([id number]) on 03/04/2019 3:02:03 PM Referred By: PHYSICIAN ED Confirmed By:Urszula Varela
[2019-03-04] MEDS ORDERED: hydrALAZINE 10 MG TAB PO PRN (15:25)
--- NOTE | 2019-03-04 15:28 | PDGENHP ---
<Giovanna Up - Last Filed: 03/04/19 15:39> History and Physical - Chief Complaint Dizziness - History of Present Illness 83 y/o female w/hx of hypothyroidism and hyperlipidemia presents w/ continued dizziness upon waking. She was admitted for this on 03/02/19 and discharged yesterday after enduring multiple imaging and work up including Brain MRI, Echo and carotid doppler study which were unremarkable but did have hypertensive urgency ( >200 systolic) ; at time of d/c yesterday, her BP stabilized and was not placed on BP meds but was encouraged to f/u w/her PCP. She reports feeling "fine" yesterday however woke up this morning and her symptoms returned. Symptoms have been present for the last 10-14 days. Denies CP, palpitations, SOB, nausea, vomiting, VENTURA. Endorses drinking a lot of water and having nightly urination. She is being admitted for treatment and monitoring. History Information - Allergies/Home Medication List Allergies/Adverse Reactions: cephalexin Allergy (Intermediate, Verified 03/04/19 12:30) Rash Home Medications: Atorvastatin Calcium [Lipitor 10 mg (*)] 10 mg PO DAILY@15 03/02/19 [Last Taken 03/03/19] Herbals/Supplements -Info Only 1 ea PO DAILY 03/02/19 [Last Taken 03/02/19] Levothyroxine [Synthroid 75 mcg (*)] 75 mcg PO SUTUTHSA@03/02/19 [Last Taken 03/03/19] Levothyroxine [Synthroid 88 mcg (*)] 88 mcg PO MOWEFR@03/02/19 [Last Taken ] I have personally reviewed and updated: family history, medical history, social history, surgical history - Past Medical History arthritis, hyperlipidemia Additional medical history: hypothyroid - Surgical History Additional surgical history: left TERESA - Family History Positive for: non-pertinent - Social History Smoking Status: Never smoked Additional social history: lives independently at [facility] Review of Systems Review of Systems: ROS: 10pt was reviewed & negative except for what was stated in HPI & below Physical Exam Physical Exam: Lab data and imaging were reviewed. Case discussed w/admitting physician, Dr. Dilip Navarro. WBC: 6.44 H/H: 13.7/3.0 Plt count: 266 Na: 132 K: 4.1 Cl: 98 Co2: 21 BUN/Cr: 1/0.9 Trop: 0.00 EKG: NSR Temp Pulse Resp BP Pulse Ox 36.8 C 64 16 169/86 H 95 03/04/19 12:30 03/04/19 14:18 03/04/19 14:18 03/04/19 14:18 03/04/19 14:18 Constitutional: no apparent distress, appears nourished, not in pain Eyes: PERRL, anicteric sclera, EOMI Ears, Nose, Mouth, Throat: moist mucous membranes, hearing normal, ears appear normal, no oral mucosal ulcers Cardiovascular: regular rate and rhythym, no murmur, rub, or gallop, No edema Peripheral Pulses: 2+: dorsalis-pedis (R), dorsalis-pedis (L) Respiratory: no respiratory distress, no rales or rhonchi, clear to auscultation Gastrointestinal: normoactive bowel sounds, soft, non-tender abdomen, no palpable masses Genitourinary: no bladder fullness, no bladder tenderness Skin: warm, normal color, no rashes or abrasions, no fluctuance, no induration, No mottled Musculoskeletal: full muscle strength, no muscle tenderness, normal joint ROM, no joint effusions Neurologic: AAOx3, sensation intact bilaterally, CN II-XII Intact Psychiatric: interacting appropriately, not anxious, not encephalopathic, thought process linear Lymph, Heme, Immunologic: no cervical LAD, no supraclavicular LAD Lab Data & Imaging Review 03/04/19 12:55 03/04/19 12:55 WBC 6.44 10^3/uL (3.80-9.50) 03/04/19 12:55 RBC 4.27 10^6/uL (4.18-5.33) 03/04/19 12:55 Hgb 13.7 g/dL (12.6-16.3) 03/04/19 12:55 Hct 39.0 % (38.0-47.0) 03/04/19 12:55 MCV 91.3 fL (81.5-99.8) 03/04/19 12:55 MCH 32.1 pg (27.9-34.1) 03/04/19 12:55 MCHC 35.1 g/dL (32.4-36.7) 03/04/19 12:55 RDW 12.6 % (11.5-15.2) 03/04/19 12:55 Plt Count 266 10^3/uL (150-400) 03/04/19 12:55 MPV 9.4 fL (8.7-11.7) 03/04/19 12:55 Neut % (Auto) 69.4 % (39.3-74.2) 03/04/19 12:55 Lymph % (Auto) 20.0 % (15.0-45.0) 03/04/19 12:55 Prowers % (Auto) 8.4 % (4.5-13.0) 03/04/19 12:55 Eos % (Auto) 1.1 % (0.6-7.6) 03/04/19 12:55 Baso % (Auto) 0.8 % (0.3-1.7) 03/04/19 12:55 Nucleat RBC Rel Count 0.0 % (0.0-0.2) 03/04/19 12:55 Absolute Neuts (auto) 4.47 10^3/uL (1.70-6.50) 03/04/19 12:55 Absolute Lymphs (auto) 1.29 10^3/uL (1.00-3.00) 03/04/19 12:55 Absolute Monos (auto) 0.54 10^3/uL (0.30-0.80) 03/04/19 12:55 Absolute Eos (auto) 0.07 10^3/uL (0.03-0.40) 03/04/19 12:55 Absolute Basos (auto) 0.05 10^3/uL (0.02-0.10) 03/04/19 12:55 Absolute Nucleated RBC 0.00 10^3/uL (0-0.01) 03/04/19 12:55 Immature Gran % 0.3 % (0.0-1.1) 03/04/19 12:55 Immature Gran # 0.02 10^3/uL (0.00-0.10) 03/04/19 12:55 Sodium 132 mEq/L (135-145) L 03/04/19 12:55 Potassium 4.1 mEq/L (3.5-5.2) 03/04/19 12:55 Chloride 98 mEq/L (97-110) 03/04/19 12:55 Carbon Dioxide 21 mEq/l (22-31) L 03/04/19 12:55 Anion Gap 13 mEq/L (6-14) 03/04/19 12:55 BUN 19 mg/dL (7-23) 03/04/19 12:55 Creatinine 0.9 mg/dL (0.6-1.0) 03/04/19 12:55 Estimated GFR 60 03/04/19 12:55 Glucose 90 mg/dL (70-100) 03/04/19 12:55 Calcium 9.2 mg/dL (8.5-10.4) 03/04/19 12:55 POC Troponin I 0.00 ng/mL (0.00-0.08) 03/04/19 12:59 Assessment & Plan Assessment: 83 y/o female discharged yesterday w/ diagnosis of hypertensive urgency, stabilized and referred to f/u w/ her PCP re: HTN presents again w/onset of symptoms today. Her vital signs upon presenting to the ED were the followin/120, pulse 79, resp 18, temp 36.8c, oxygen saturation 98% RA. Current vital signs are the following: BP 169/86, pulse 64, resp 16, 95% RA. #Hypertension -Associated symptoms of dizziness is most likely r/t untreated HTN. Of note, last admission her sxs improved w/BP lowering -Hydralazine PRN if sbp > 170 -Initiated low-dose amlodipine QD -Etiology of HTN unclear; resp therapy to perform nocturnal oximetry testing tonight #Dizziness -See above -PT/OT to treat #Hyponatremia -Reportedly drank a lot of water thinking this was causing the dizziness. Likely d/t excessive water intake -Recheck Na in AM #Hypothyroidism: Cont L4T #Hyperlipidemia: Cont statin Diet: Regular Code: DNR VTE PPX: Lovenox subq Dispo: Admit to obs <MelanieRiccoarmand - Last Filed: 03/04/19 17:23> History and Physical - History of Present Illness Review of Systems Review of Systems: Physical Exam Physical Exam: Temp Pulse Resp BP Pulse Ox 36.7 C 62 16 150/79 H 95 03/04/19 15:59 03/04/19 15:59 03/04/19 15:59 03/04/19 15:59 03/04/19 15:59 Lab Data & Imaging Review 03/04/19 12:55 03/04/19 12:55 WBC 6.44 10^3/uL (3.80-9.50) 03/04/19 12:55 RBC 4.27 10^6/uL (4.18-5.33) 03/04/19 12:55 Hgb 13.7 g/dL (12.6-16.3) 03/04/19 12:55 Hct 39.0 % (38.0-47.0) 03/04/19 12:55 MCV 91.3 fL (81.5-99.8) 03/04/19 12:55 MCH 32.1 pg (27.9-34.1) 03/04/19 12:55 MCHC 35.1 g/dL (32.4-36.7) 03/04/19 12:55 RDW 12.6 % (11.5-15.2) 03/04/19 12:55 Plt Count 266 10^3/uL (150-400) 03/04/19 12:55 MPV 9.4 fL (8.7-11.7) 03/04/19 12:55 Neut % (Auto) 69.4 % (39.3-74.2) 03/04/19 12:55 Lymph % (Auto) 20.0 % (15.0-45.0) 03/04/19 12:55 Prowers % (Auto) 8.4 % (4.5-13.0) 03/04/19 12:55 Eos % (Auto) 1.1 % (0.6-7.6) 03/04/19 12:55 Baso % (Auto) 0.8 % (0.3-1.7) 03/04/19 12:55 Nucleat RBC Rel Count 0.0 % (0.0-0.2) 03/04/19 12:55 Absolute Neuts (auto) 4.47 10^3/uL (1.70-6.50) 03/04/19 12:55 Absolute Lymphs (auto) 1.29 10^3/uL (1.00-3.00) 03/04/19 12:55 Absolute Monos (auto) 0.54 10^3/uL (0.30-0.80) 03/04/19 12:55 Absolute Eos (auto) 0.07 10^3/uL (0.03-0.40) 03/04/19 12:55 Absolute Basos (auto) 0.05 10^3/uL (0.02-0.10) 03/04/19 12:55 Absolute Nucleated RBC 0.00 10^3/uL (0-0.01) 03/04/19 12:55 Immature Gran % 0.3 % (0.0-1.1) 03/04/19 12:55 Immature Gran # 0.02 10^3/uL (0.00-0.10) 03/04/19 12:55 Sodium 132 mEq/L (135-145) L 03/04/19 12:55 Potassium 4.1 mEq/L (3.5-5.2) 03/04/19 12:55 Chloride 98 mEq/L (97-110) 03/04/19 12:55 Carbon Dioxide 21 mEq/l (22-31) L 03/04/19 12:55 Anion Gap 13 mEq/L (6-14) 03/04/19 12:55 BUN 19 mg/dL (7-23) 03/04/19 12:55 Creatinine 0.9 mg/dL (0.6-1.0) 03/04/19 12:55 Estimated GFR 60 03/04/19 12:55 Glucose 90 mg/dL (70-100) 03/04/19 12:55 Calcium 9.2 mg/dL (8.5-10.4) 03/04/19 12:55 POC Troponin I 0.00 ng/mL (0.00-0.08) 03/04/19 12:59 Assessment & Plan Assessment: Patient seen and evaluated independently and care plan reviewed with MARLENA Up. Agree with her assessment and plan as outlined above. Please see separate documentation and recent admit H&P for further details. Dizziness (Acute)
[2019-03-04] MEDS ORDERED: amLODIPine BESYLATE 5 MG TAB PO SCH ×2 (15:30→18:41)
--- NOTE | 2019-03-04 17:23 | HOSPPROG ---
Hospitalist Progress Note Assessment/Plan: 83 yo F with PMH of HLD, hypothyroidism and recent admission for dizziness in the setting of hypertensive urgency admitted with recurrent dizziness and uncontrolled htn # uncontrolled HTN: with recent admission for dizziness in the setting of hypertensive urgency and sxs recurring today with recurrent elevated bp. Of note , she was not discharged on any BP meds yesterday as her BP was largely in the upper 130s to 140s off of any BP medication. She does have e/o LVH on echo and generally suspect that she has chronic elevation in BP with perhaps some lability accounting for yesterdays numbers. She was started on 2.5 of norvasc but will increase to 5 mg and monitor to determine if that will be sufficient. # dizziness: patient with a hx that did not sound c/w vertigo or near syncope but her sxs were consistently related to increased BP and presumably hypertensive encephalopathy. She had extensive w/u during last stay including echo, brain mri, carotid us, neurology eval. As above, will monitor again on tele. # hyponatremia: in the setting of ingesting heavy amounts of water presumably on her last admit, but resolved with saline administration and now recurrent-- either way, mild and doubt it is contributing to her presenting sxs # hypothyroid: continue lt4, recent tsh was wnl # observation status # DNR Patient new to my care. Old records reviewed and summarized as above. Care plan reviewed with ER doctor and MARLENA Up, please see her separate documentation for further details. Objective: Vital Signs Temp Pulse Resp BP Pulse Ox 36.7 C 62 16 150/79 H 95 03/04/19 15:59 03/04/19 15:59 03/04/19 15:59 03/04/19 15:59 03/04/19 15:59 ICD10 Worksheet Patient Problems: Problems Problem Status Onset Dizziness Acute
[2019-03-04] MEDS ORDERED: amLODIPine BESYLATE 5 MG TAB PO ONE (18:40)
[2019-03-04] MEDS ORDERED: MELATONIN 3 MG TAB PO SCH (21:00)
[2019-03-05] MEDS ORDERED: LEVOTHYROXINE 75 MCG TAB PO SCH (06:00)
--- NOTE | 2019-03-05 08:58 | HOSPPROG ---
Hospitalist Progress Note Assessment/Plan: 83 yo F with PMH of HLD, hypothyroidism and recent admission for dizziness in the setting of hypertensive urgency admitted with recurrent dizziness and uncontrolled htn. 1st encounter. Chart reviewed. * uncontrolled hypertension -recently discharged with stable blood pressures -Norvasc 5 mg daily * dizziness -had extensive workup during her last stay including an echocardiogram, brain MRI, Neurology evaluation -recommending she f/u with ENT *tachycardia -occurs when I was evaluating her -will get a 12 lead to evaluate * hyponatremia -had been drinking significant amount of water on previous admission * hypothyroidism -resumed Synthroid -reviewed her PMH and most recent TSH was stable, prior had been on the low side of normal *plan: EKG now, should f/u with ENT, recommending SNF at , will check orthostatics, trial of meclizine prn Subjective: Yasmin Arguello was hoping her dizziness would go away w treatment of her hypertension, she is nervous about falling if she is dc. Objective: Vital Signs Temp Pulse Resp BP Pulse Ox 36.9 C 79 18 157/79 H 93 03/05/19 07:18 03/05/19 07:18 03/05/19 07:18 03/05/19 07:18 03/05/19 07:18 Laboratory Results 03/05/19 04:24 - Physical Exam Constitutional: no apparent distress, appears nourished, not in pain Eyes: PERRL Ears, Nose, Mouth, Throat: hearing normal Cardiovascular: regular rate and rhythym, tachycardia Respiratory: no respiratory distress Skin: warm Neurologic: AAOx3 Psychiatric: interacting appropriately ICD10 Worksheet Patient Problems: Problems Problem Status Onset Dizziness Acute
[2019-03-05] MEDS ORDERED: ENOXAPARIN 40 MG/0.4 ML SYR SC SCH (09:00)
--- NOTE | 2019-03-05 10:53 | ASMTCMCOM ---
CM Note CM Note Notes: Pt is a 83 y/o female admitted for dizziness. Pt normally lives at [facility]. Pt admitted to [facility] on 03/02 and discharged yesterday 03/04 for the same presentation. Therapies are ordered and awaiting recommendations. CM met w/ pt and nephew Bebeto. Pt reports that she worked w/ therapy this AM but couldn't remember if it was PT or OT. Pt reports that they were recommending SNF. Pt is onboard w/ going to SNF. CM sent referral over to [facility] and communicated w/ Cuca that pt will need a SNF bed. Pt has [employer] for insurance and Cuca may need to get auth. Pt is requesting to have her meals w/ her friends in [place] when she is in SNF. Pt reports that she is very social. Pt is currently on a tele monitor and will have EKG later today. CM to follow. Plan: [facility] Date Signed: 03/05/2019 10:52 AM Electronically Signed By:MARY Irizarry
[2019-03-05] MEDS ORDERED: MECLIZINE HCL 12.5 MG TAB PO PRN (11:01)
[2019-03-05 11:45] VITALS: BP 139/68
--- NOTE | 2019-03-05 14:56 | PDIAF ---
- Diagnosis Diagnosis: uncontrolled htn, dizziness, orthostasis, hyponatremia Code Status: Do Not Resuscitate - Medication Management Discharge Medications: electronically signed and located in the Home Medication List. PICC Care - Routine: N/A - Orders Services needed: Physical Therapy, Occupational Therapy Diet Recommendation: no restrictions on diet Diet Texture: Regular Texture Diet Additional Instructions: you have orthostatic hypotension which means when you stand up your blood pressure drops. Get up from lying down to standing slowly. Sit on your bed for a few minutes prior to standing Get a repeat TSH in 6 weeks with your primary care provider. Also, Follow up with an Ear, Nose, Throat physician to evaluate other etiologies of your dizziness Norvasc (amlodipine) is a new medication for you to help manage your blood pressure - Follow Up Care Current Providers and Referrals: Leah Norris MD [Primary Care Provider] - As per Instructions
[2019-03-05] MEDS ORDERED: ATORVASTATIN CALCIUM 10 MG TAB PO SCH (15:00)
--- NOTE | 2019-03-05 15:17 | ASMTLACE ---
RAF Length of stay for Answers: 1 day current admission Acuity / Level of Answers: No Care: Did the patient have an inpatient admission? # of Emergency department Answers: 1-2 visits in the last 6 months Score: 2 Date Signed: 03/05/2019 03:16 PM Electronically Signed By:MARY Irizarry
--- NOTE | 2019-03-05 15:21 | ASDISCHSUM ---
Discharge Information Plan Status:SNF Medically Cleared to Leave:03/05/2019 Discharge Date:03/05/2019 CM D/C Disposition: ADT D/C Disposition:Long Term Facility Projected Discharge Date:03/05/2019 11:00 AM Transportation at D/C: Discharge Delay Reason: Follow-Up Date:03/05/2019 11:00 AM Discharge Slot: Final Diagnosis: Placement Information Referral Type:*[facility]/SNF Referral ID:[id number] Provider Name:Adrien Nickerson [facility] Address 1:[address] Phone Number: Address 2: Fax Number: [facility]:[place] Selection Factors: State:[place] Patient Contact Information Contact Name:SOY Relationship:Valente Address: Home Phone: City: [facility] Phone: [facility] Code: Email: Financial Information Financial Class:Medicare Advantage Plans Primary Plan Desc:FINN MEDICARE ADV Primary Plan Number:[id number] Secondary Plan Desc: Secondary Plan Number: Assessment Information LACE LACE Length of stay for Answers: 1 day current admission Acuity / Level of Answers: No Care: Did the patient have an inpatient admission? # of Emergency department Answers: 1-2 visits in the last 6 months Score: 2 Date Signed: 03/05/2019 03:16 PM Electronically Signed By:MARY Irizarry [facility] CM Progress Note CM Note CM Note Notes: Pt is a 83 y/o female admitted for dizziness. Pt normally lives at [facility]. Pt admitted to [facility] on 03/02 and discharged yesterday 03/04 for the same presentation. Therapies are ordered and awaiting recommendations. CM met w/ pt and nephew Bebeto. Pt reports that she worked w/ therapy this AM but couldn't remember if it was PT or OT. Pt reports that they were recommending SNF. Pt is onboard w/ going to SNF. CM sent referral over to [facility] and communicated w/ Cuca that pt will need a SNF bed. Pt has [facility] for insurance and Cuca may need to get auth. Pt is requesting to have her meals w/ her friends in [place] when she is in SNF. Pt reports that she is very social. Pt is currently on a tele monitor and will have EKG later today. CM to follow. Plan: [facility] Date Signed: 03/05/2019 10:52 AM Electronically Signed By:MARY Irizarry Case Management Discharge Plan Note Case Management Discharge Discharge Order Complete? Answers: Yes Patient to Obtain Answers: Other Notes: [facility] Medications Transportation Arranged Answers: Family/Friends EMTALA Complete Answers: No Case Management Transport Answers: No Form Complete Faxed Final Orders Answers: Yes Agency/Facility Transfer Answers: Yes Report Printed & Faxed to Receiving Agency Family Notified Answers: Yes Discharge Comments Notes: Cuca was able to get auth from [employer]. Viri is discharging pt today to [facility]. DC orders sent. SCOTT Echevarria will call to give report. CM notified pt. Pts Daughter in law Laura was in the room when I notified her of the d/c. Laura will bring pt to SNF. CM available for changes. Plan: [facility] Date Signed: 03/05/2019 03:19 PM Electronically Signed By:MARY Irizarry Intervention Information
--- NOTE | 2019-03-05 15:30 | GDS ---
[f rep st] DISCHARGE SUMMARY DISCHARGE DIAGNOSES: 1. Uncontrolled hypertension. 2. Dizziness. 3. Tachycardia. 4. Hyponatremia. 5. Hypothyroidism. 6. Orthostasis. HISTORY: Briefly, Yasmin Orellana is an 83-year-old female with a past medical history of hyperlipidemia, hypothyroidism and was recently admitted for dizziness. This was in the setting of hypertensive urgency. She had imaging done as well as echocardiogram and Neurology consult on this last admission. She was not discharged on any blood pressure medications because her blood pressure had normalized. On this admission, her blood pressure was very high. She was treated with Norvasc with good results. She will go to [facility] for rehabilitation. HOSPITAL COURSE BY PROBLEM: 1. Uncontrolled hypertension, stable. 2. Dizziness. She had an extensive workup on her last day including an echocardiogram, brain MRI and Neurology evaluation. I am recommending that she follow up with ENT. Also, she has significant orthostasis. 3. Tachycardia. A 12-lead was performed, which showed sinus rhythm. 4. Hyponatremia, stable. 5. Hypothyroidism, on Synthroid. DISCHARGE CONDITION: Stable. Blood pressure is 139/68, heart rate is 74, respiratory rate of 18, O2 sats on room air 95%, temperature 36.6 Celsius. MEDICATIONS AT DISCHARGE: Please see the EMR. DISCHARGE INSTRUCTIONS: 1. Follow up with ENT. 2. If she has orthostasis, to get up slowly from lying to standing. Recommending she sit on the side of the bed for a few minutes. 3. Norvasc is a new medication for her to manage her blood pressure. 4. To get a repeat TSH with her primary care provider. This has been low in the past. /[id number]/MODL MTDD
[2019-03-06] MEDS ORDERED: LEVOTHYROXINE 88 MCG TAB PO SCH (06:00)
--- NOTE | 2019-03-08 11:48 | CPEKG ---
Test Reason : OPEN Blood Pressure : / mmHG Vent. Rate : 086 BPM Atrial Rate : 086 BPM P-R Int : 204 ms QRS Dur : 089 ms QT Int : 364 ms P-R-T Axes : 039 -11 026 degrees QTc Int : 436 ms Sinus rhythm Probable anteroseptal infarct, old Confirmed by Misael Carlin ([id number]) on 03/08/2019 11:47:49 AM Referred By: Dilip Navarro Confirmed By:Misael Carlin
== END 2019-03-05 15:55 ==
LOC: EDUNIT# → F3E 15:53
PROVIDERS: ADMIT Internal Medicine; ATTEND Internal Medicine
DX: I16.9 Hypertensive crisis, unspecified (principal); R00.0 Tachycardia, unspecified; I95.1 Orthostatic hypotension; E87.1 Hypo-osmolality and hyponatremia; E03.9 Hypothyroidism, unspecified
CPT/HCPCS: 93005; 96372; 97116; 97161; 97165; 99285; G0378; J0360; J1650; 84484-ER